=== PATIENT | male | born 1985 | race Hispanic/Latino ===

== ENCOUNTER 2017-03-06 16:10 | Inpatient (IN) | payer MEDICAID, OTHER ==
[2017-03-06 16:21] VITALS: BMI 23.0
[2017-03-06 17:06] LABS: BASO # 0.01 K/mm3 (0.0-2.0); BASO % 0.1 % (0.0-3.0); EOS # 0.1 (0.0-0.7); EOS % 0.8 % (1.5-5.0); GRAN # 7.71 (1.4-6.5); HEMATOCRIT 34.9 % (42.0-52.0); LYMPH # 1.8 (1.2-3.4); LYMPH % 17.3 % (22.0-35.0); MEAN CELL VOLUME 86.8 fl (80.0-105.0); MEAN CORPUSCULAR HEMOGLOBIN 29.6 pg (25.0-35.0); MEAN CORPUSCULAR HGB CONC 34.1 g/dl (31.0-37.0); MEAN PLATELET VOLUME 8.7 fl (7.0-11.0); MONO # 0.7 (0.1-0.6); MONO % 6.8 % (1.0-6.0); RED CELL DISTRIBUTION WIDTH 13.9 % (11.5-14.5); WHITE BLOOD COUNT 10.3 10^3/ul (4.5-11.0)
[2017-03-06 17:24] LABS: ALB/GLOB RATIO 1.3 (1.1-1.8); ALKALINE PHOSPHATASE 77 U/L (38-126); ALT/SGPT 143 U/L (7-56); AST/SGOT 78 U/L (17-59); BILIRUBIN,TOTAL 1.1 mg/dL (0.2-1.3); BLOOD UREA NITROGEN 13 mg/dL (7-21); CALCIUM 9.3 mg/dL (8.4-10.5); CARBON DIOXIDE 26 mmol/L (21-33); CHLORIDE 101 mmol/L (98-107); GFR AFRICAN-AMERICAN > 60; GLUCOSE,RANDOM 112 mg/dL (70-110); SODIUM 135 mmol/L (132-148); TOTAL PROTEIN 7.7 g/dL (5.8-8.3)
--- NOTE | 2017-03-06 18:02 | ED PDOC ---
Arrival/HPI <Yomi Wick - Last Filed: 03/06/17 18:34> <Matheus Israel - Last Filed: 03/06/17 21:30> - General Time Seen by Provider: 03/06/17 16:41 - History of Present Illness Narrative History of Present Illness (Text): 31M c/o hearing voices for the last month telling him to kill himself. he says he attempted to overdose by injecting heroin last night. he c/o pain and swelling in his left forearm where he injected. he says he was dx w anxiety, depression, and bipolar several years ago but he stopped taking medication bc he could not afford it. (Yomi Wick) Past Medical History - Cardiac Hx Cardiac Disorders: No - Pulmonary Hx Respiratory Disorders: No - Neurological Hx Neurological Disorder: No - HEENT Hx HEENT Disorder: No - Renal Hx Renal Disorder: No - Endocrine/Metabolic Hx Endocrine Disorders: No - Hematological/Oncological Hx Blood Disorders: No - Integumentary Hx Dermatological Disorder: No - Musculoskeletal/Rheumatological Hx Musculoskeletal Disorders: No - Gastrointestinal Hx Gastrointestinal Disorders: No - Genitourinary/Gynecological Hx Genitourinary Disorders: No - Psychiatric Hx Anxiety: Yes Hx Bipolar Disorder: Yes Hx Depression: Yes Hx Substance Use: No - Surgical History Hx Appendectomy: Yes - Anesthesia Hx Anesthesia: No Hx Anesthesia Reactions: No Hx Malignant Hyperthermia: No <Yomi Wick - Last Filed: 03/06/17 18:34> Family/Social History Family/Social History: Other (nc) Smoking Status: Light Smoker < 10 Cigarettes Daily Hx Alcohol Use: No Hx Substance Use: No Substance used: heroin <Yomi Wick - Last Filed: 03/06/17 18:34> Allergies/Home Meds <Yomi Wick - Last Filed: 03/06/17 18:34> <Matheus Israel - Last Filed: 03/06/17 21:30> Allergies/Adverse Reactions: Allergies No Known Allergies Allergy (Verified 03/06/17 16:32) Home Medications: Home Meds Medication Instructions Recorded Confirmed No Known Home Med 03/06/17 03/06/17 Review of Systems - Physician Review All systems were reviewed & negative as marked: Yes - Review of Systems Constitutional: absent: Fevers Respiratory: absent: SOB Cardiovascular: absent: Chest Pain Gastrointestinal: absent: Abdominal Pain, Vomiting Neurological: absent: Headache, Dizziness, Focal Weakness Psychiatric: Anxiety, Depression, Suicidal Ideation <Yomi Wick - Last Filed: 03/06/17 18:34> Physical Exam Vital Signs Reviewed: Yes Appearance: Positive for: Well-Appearing, Non-Toxic, Comfortable Pain Distress: None Mental Status: Positive for: Alert and Oriented X 3 - Systems Exam Head: Present: Atraumatic Pupils: Present: PERRL Mouth: Present: Moist Mucous Membranes Nose (Internal): No: Epistaxis Neck: Present: Normal Range of Motion Respiratory/Chest: No: Respiratory Distress, Accessory Muscle Use Cardiovascular: Present: Regular Rate and Rhythm Abdomen: No: Tenderness, Distention Upper Extremity: Present: Other (mild swelling and mild erythema of the distal aspect of the left forearm. track castanon present.) Neurological: Present: GCS=15 Skin: Present: Warm, Dry <Yomi Wick - Last Filed: 03/06/17 18:34> Vital Signs Temp Pulse Resp BP Pulse Ox 03/06/17 18:32 81 17 133/63 98 03/06/17 16:29 99.3 F 95 H 18 138/86 97 Medical Decision Making <Yomi Wick - Last Filed: 03/06/17 18:34> <Matheus Israel - Last Filed: 03/06/17 21:30> ED Course and Treatment: rec continue clindamycin for cellulitis of left forearm. (Yomi Wick) 03/06/17 21:29 Patient endorsed to me by Dr. Wick; he has cellulitis of the left forearm which could be treated with oral antibiotics but was otherwise cleared for psych eval and admission - seen by PES and will be admitted to psychiatry for major depression and substance abuse. (Matheus Israel) - Lab Interpretations Lab Results: 03/06/17 16:54 03/06/17 16:54 Lab Results 03/06/17 18:42: Urine Opiates Screen Positive H, Urine Methadone Screen Negative , Ur Barbiturates Screen Negative, Ur Phencyclidine Scrn Negative, Ur Amphetamines Screen Negative, U Benzodiazepines Scrn Negative, U Oth Cocaine Metabols Positive H, U Cannabinoids Screen Positive H 03/06/17 18:42: Urine Color Yellow, Urine Appearance Clear, Urine pH 6.5, Ur Specific Moss 1.020, Urine Protein Trace H, Urine Glucose (UA) Negative, Urine Ketones 15 H, Urine Blood Negative, Urine Nitrate Negative, Urine Bilirubin Negative, Urine Urobilinogen 1.0 H, Ur Leukocyte Esterase Negative, Urine RBC 1 - 3, Urine WBC 1 - 3, Ur Epithelial Cells 0 - 2 03/06/17 16:54: Alcohol, Quantitative < 10 03/06/17 16:54: Salicylates < 1 L, Acetaminophen < 10.0 L 03/06/17 16:54: Sodium 135, Potassium 4.0, Chloride 101, Carbon Dioxide 26, Anion Gap 12, BUN 13, Creatinine 0.8, Est GFR ( Amer) > 60, Est GFR (Non- Af Amer) > 60, Random Glucose 112 H, Calcium 9.3, Total Bilirubin 1.1, AST 78 H , ALT 143 H, Alkaline Phosphatase 77, Total Protein 7.7, Albumin 4.3, Globulin 3.4, Albumin/Globulin Ratio 1.3 03/06/17 16:54: WBC 10.3, RBC 4.02, Hgb 11.9 L, Hct 34.9 L, MCV 86.8, MCH 29.6, MCHC 34.1, RDW 13.9, Plt Count 372, MPV 8.7, Gran % 75.0 H, Lymph % (Auto) 17.3 L, Runnels % (Auto) 6.8 H, Eos % (Auto) 0.8 L, Baso % (Auto) 0.1, Gran # 7.71 H, Lymph # 1.8, Runnels # 0.7 H, Eos # 0.1, Baso # 0.01 - Medication Orders Current Medication Orders: Discontinued Medications Clindamycin HCl (Cleocin) 300 mg PO STAT STA PRN Reason: Protocol Stop: 03/06/17 18:31 Last Admin: 03/06/17 18:39 Dose: 300 mg Disposition/Present on Arrival - Present on Arrival Any Indicators Present on Arrival: No History of DVT/PE: No History of Uncontrolled Diabetes: No Urinary Catheter: No History of Decub. Ulcer: No History Surgical Site Infection Following: None <Yomi Wick - Last Filed: 03/06/17 18:34> - Disposition Have Diagnosis and Disposition been Completed?: Yes Disposition Time: 21:15 Patient Plan: Admission <Matheus Israel - Last Filed: 03/06/17 21:30> - Disposition Diagnosis: Suicidal ideation, Cellulitis Disposition: HOSPITALIZED Patient Problems: Current Active Problems Problem Status Onset Cellulitis Acute Suicidal ideation Acute Condition: STABLE
[2017-03-06 18:53] LABS: PH,URINE 6.5 (4.7-8.0); URINE BILIRUBIN NEGATIVE (NEGATIVE); URINE BLOOD NEGATIVE (NEGATIVE); URINE GLUCOSE (UA) NEGATIVE (NEGATIVE); URINE KETONE 15 mg/dL (NEGATIVE); URINE LEUKOCYTE ESTERASE NEGATIVE Leu/uL (NEGATIVE); URINE PROTEIN TRACE mg/dL (<30 mg/dL)
[2017-03-06 19:43] LABS: URINE APPEARANCE CLEAR (CLEAR); URINE COLOR YELLOW (YELLOW)
[2017-03-06 20:07] LABS: URINE EPITHELIAL CELLS 0 - 2 /hpf (0-5)
[2017-03-06] MEDS ORDERED: Magnesium Hydroxide Susp 30 ml UD PO PRN (23:03)
[2017-03-06] MEDS ORDERED: Alum-Mag Hydrox-Simethicone Susp (30 mL) PO PRN (23:03)
--- NOTE | 2017-03-07 01:27 | PCM.BM ---
<Ashutosh Owusu - Last Filed: 03/07/17 01:24> Treatment Plan Problems - Problems identified on initial assessmt depression Date Initiated: 03/06/17 Time Initiated: 22:15 Assessment reference: NA Status: Active suicidal ideation Date Initiated: 03/06/17 Time Initiated: 22:15 Assessment reference: NA Status: Active Treatment assets and liabiliti Patient Assests: cooperative, ADL independent Patient Liabilities: live alone, financial problems, poor support system, relationship conflicts, substance abuse - Milieu Protocol Maintain good personal hygiene: daily Encourage regular showers, daily Remind patient to perform daily oral care, daily Assist patient to perform ADL's Conduct patient checks and document Observation sheet: Q15 minutes, 1:1 Maintain personal safety: every shift Educate patient to report safety concerns to staff, every shift Monitor environment for contraband/sharps Medication safety: Monitor for expected outcome, potential side effects: every shift, Assess barriers to learning: every shift, Assess readiness for medication education: every shift Discharge/Continuing Care - Education Needs Education Needs: Patient Medication, Patient Diagnosis/Disease Process, Patient Coping Skills, Patient Community resources, Patient Health Practices/Safety - Discharge Discharge Criteria: Tolerates medication w/o severe side effects, Free of Suicidal thoughts, Normal sleep pattern <Avani Napoles - Last Filed: 03/07/17 16:37> Family Contact Family involvement: Famliy/SO not involved Family contact: Patient declines to allow family contact at present - Goals for Treatment Patient goals for treatment: "To get on Disability so that I can help my family. " <Uyen Chow - Last Filed: 03/07/17 16:51>
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
[2017-03-07 07:58] LABS: CHOLESTEROL 141 mg/dL (130-200)
--- NOTE | 2017-03-07 08:49 | RAD ---
HISTORY: psych COMPARISON: None available. TECHNIQUE: Chest, one view. FINDINGS: LUNGS: No focal consolidation. Please note that chest x-ray has limited sensitivity for the detection of pulmonary masses. PLEURA: No significant pleural effusion identified. No definite pneumothorax . CARDIOVASCULAR: The cardiomediastinal silhouette appears within normal limits of size. OSSEOUS STRUCTURES: No acute osseous abnormality identified. VISUALIZED UPPER ABDOMEN: Unremarkable. OTHER FINDINGS: None. IMPRESSION: No focal consolidation, significant pleural effusion, or definite pneumothorax identified.
--- NOTE | 2017-03-07 09:08 | CARD ---
APPROVED REPORT EKG Measurement Heart [id number] <Conclusion> Normal sinus rhythm Voltage criteria for left ventricular hypertrophy Abnormal ECG
[2017-03-08 06:48] VITALS: O2SAT 99
[2017-03-08 08:56] LABS: FREE T4 0.98 ng/dL (0.78-2.19)
[2017-03-08 09:10] LABS: THYROID STIMULATING HORMONE 0.24 mIU/mL (0.46-4.68)
[2017-03-08] MEDS: Tmp-Smz 800 mg-160 mg DS Tab PO SCH (15:19)
--- NOTE | 2017-03-08 16:22 | PCM.PYCHPN ---
Psychiatric Progress Note - Psychiatric Progress Note Patient seen today, length of contact: 25 min Patient Chief Complaint: feeling a lot better and hopeful. Problems Identified/Issues Discussed: I recent notes and met with patient at bedside. Patient is oriented and cooperative. Reports that he is feeling a lot better and hopeful.Affect is constricted and depressed. Thought process is scattered. Patient denies having any hallucinations and he does not appear to be responding to internal stimuli. Patient denies having any new pain, side affectsor discomfort. Reports sleep was restless last night. Staff notes indicate he hasn't been attending groups and has minimal interaction with peers. Has been labile.There were no behavioral issues overnight Diagnostic Results: Schizoaffective Disorder Opiate Use Disorder, Severe r/o SIMD r/o SIPD Medication Change: Yes (Sonata started) Medical Record Reviewed: Yes Mental Status Examination - Cognitive Function Orientation: Person, Place Attention: WNL - Mood Mood: Depressed (feeling a lot better and hopeful.) - Affect Affect: Constricted - Speech Speech: Appropriate - Formal Thought Process Formal Thought Process: Loosening of associations - Suicidal Ideation Suicidal Ideation: No - Homicidal Ideation Homicidal Ideation: No Goal/Treatment Plan - Goal/Treatment Plan Progress Toward Problem(s) and Goals/Treatment Plan: * c/w current tx and plan * Sonata 5 mg HS prn:insomnia * c/w methadone taper for opiate withdrawal, patient scheduled to get 5 mg x1 today * Vitals reviewed and noted below: Selected Entries 03/06/17 03/06/17 21:40 22:13 Temperature 99 F Pulse Rate 86 78 Respiratory 19 Rate Blood Pressure 139/64 120/77 * Weekend labs noted below: 03/08/17 03/08/17 06:50 06:50 Free T4 0.98 TSH 3rd Generation 0.24 L HIV-1 Ab Rapid Screen Non reactive
[2017-03-09] MEDS: Tmp-Smz 800 mg-160 mg DS Tab PO SCH ×2 (08:24→17:35)
--- NOTE | 2017-03-09 09:28 | PCM.PYCHPN ---
Psychiatric Progress Note - Psychiatric Progress Note Patient seen today, length of contact: 25 min Patient Chief Complaint: feeling a lot better and hopeful. Problems Identified/Issues Discussed: I reviewed recent notes and met with patient in the hallway. Appears younger than his age, grooming is a little unkempt. Patient remains oriented and cooperative. Reports that he is feeling a lot better and hopeful. Affect is more reactive and related. Thought process is more focused and organized today. Patient denies having any hallucinations and he does not appear to be responding to internal stimuli. Patient denies having any new pain, side affects or discomfort. Reports that he slept better last night. Staff notes indicate that patient has been labile and irritable with low frustration tolerance. Angry about nursing taking away his pants because it has drawstrings. Patient hasn't been attending groups and has minimal interaction with peers. There were no major behavioral issues overnight Diagnostic Results: Schizoaffective Disorder Opiate Use Disorder, Severe r/o SIMD r/o SIPD Medication Change: Yes (Sonata started) Medical Record Reviewed: Yes Mental Status Examination - Cognitive Function Orientation: Person, Place Attention: WNL - Mood Mood: Depressed (feeling a lot better and hopeful.) - Affect Affect: Constricted (more reactive and related) - Speech Speech: Appropriate - Formal Thought Process Formal Thought Process: Loosening of associations - Suicidal Ideation Suicidal Ideation: No - Homicidal Ideation Homicidal Ideation: No Goal/Treatment Plan - Goal/Treatment Plan Progress Toward Problem(s) and Goals/Treatment Plan: * c/w current tx and plan * Sonata 5 mg HS prn:insomnia started 03/07/17 * c/w methadone taper for opiate withdrawal, patient scheduled to get 2.5 mg x1 today * Vitals reviewed and noted below: Selected Entries 03/08/17 03/08/17 06:47 16:00 Temperature 98.2 F Pulse Rate 64 64 Respiratory 17 Rate Blood Pressure 124/89 118/78 O2 Sat by Pulse 99 Oximetry * Weekend labs noted below: 03/08/17 03/08/17 06:50 06:50 Free T4 0.98 TSH 3rd Generation 0.24 L HIV-1 Ab Rapid Screen Non reactive
[2017-03-10 06:39] VITALS: PULSE 62; RESP 20
[2017-03-10 06:42] VITALS: BP 109/64; TEMP 98.1
[2017-03-10] MEDS: Tmp-Smz 800 mg-160 mg DS Tab PO SCH (08:49)
== END 2017-03-10 17:07 | disposition home or self-care (01) | DRG 430 ==
LOC: ED 16:10 → ERH 21:11 → PSYC 21:44
PROVIDERS: ADMIT Psychiatry & Neurology Psychiatry; ATTEND Psychiatry & Neurology Addiction Medicine
DX: F25.9 Schizoaffective disorder, unspecified (principal); F11.23 Opioid dependence with withdrawal; L03.114 Cellulitis of left upper limb; R45.851 Suicidal ideations

== ENCOUNTER 2017-05-05 21:24 | Emergency (ER) | payer MEDICAID, OTHER ==
[2017-05-05 21:24] VITALS: BMI 23.0
== END 2017-05-05 22:22 | disposition left against medical advice (07) ==
LOC: ED 21:24
DX: Z02.89 Encounter for other administrative examinations (principal); Z00.8 Encounter for other general examination

== ENCOUNTER 2017-05-10 20:44 | Inpatient (IN) | payer MEDICAID, OTHER ==
[2017-05-10 20:44] VITALS: BMI 23.0
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
[2017-05-10 23:10] LABS: HEMOGLOBIN 12.8 g/dL (14.0-18.0); MEAN CELL VOLUME 87.8 fl (80.0-105.0); MEAN CORPUSCULAR HEMOGLOBIN 29.4 pg (25.0-35.0); MEAN CORPUSCULAR HGB CONC 33.5 g/dl (31.0-37.0); MEAN PLATELET VOLUME 8.8 fl (7.0-11.0); RBC 4.35 10^6/uL (3.5-6.1); WHITE BLOOD COUNT 8.5 10^3/ul (4.5-11.0)
[2017-05-10 23:15] LABS: ALB/GLOB RATIO 1.3 (1.1-1.8); ALBUMIN 4.4 g/dL (3.0-4.8); ALT/SGPT 260 U/L (7-56); AST/SGOT 96 U/L (17-59); BLOOD UREA NITROGEN 12 mg/dL (7-21); CALCIUM 9.4 mg/dL (8.4-10.5); GFR AFRICAN-AMERICAN > 60; GFR NON-AFRICAN AMERICAN > 60
[2017-05-11 02:42] LABS: BARBITURATES, UR NEGATIVE (NEGATIVE); BENZODIAZEPINES, UR NEGATIVE (NEGATIVE)
[2017-05-11 02:43] LABS: OPIATES, UR POSITIVE (NEGATIVE)
[2017-05-11 02:44] LABS: PHENCYCLIDINE, UR NEGATIVE (NEGATIVE)
--- NOTE | 2017-05-11 07:13 | ED PDOC ---
Physical Exam Vital Signs Temp Pulse Resp BP Pulse Ox 05/11/17 06:00 56 L 16 102/62 100 05/11/17 04:00 88 18 112/70 100 05/11/17 02:00 80 16 114/69 100 05/11/17 00:05 72 16 120/71 98 05/10/17 20:53 97.6 F 90 18 132/79 100 Medical Decision Making ED Course and Treatment: 05/11/17 07:00 Case signed out to me by Dr. Thompson. Patient is a 31 year old male, who presents to the Emergency department complaining of depression and admits to feeling increasingly depressed over the past few weeks after he began using heroin again. Patient also notes having auditory hallucinations. Currently pending psych evaluation and Chest X-ray. 05/11/17 08:[address] Salas who will admit patient under his care. - Lab Interpretations Lab Results: 05/10/17 22:49 05/10/17 22:49 Lab Results 05/11/17 02:00: Urine Opiates Screen Positive H, Urine Methadone Screen Negative , Ur Barbiturates Screen Negative, Ur Phencyclidine Scrn Negative, Ur Amphetamines Screen Negative, U Benzodiazepines Scrn Negative, U Oth Cocaine Metabols Positive H, U Cannabinoids Screen Positive H 05/10/17 22:49: WBC 8.5, RBC 4.35, Hgb 12.8 L, Hct 38.2 L, MCV 87.8, MCH 29.4, MCHC 33.5, RDW 14.0, Plt Count 347, MPV 8.8 05/10/17 22:49: Alcohol, Quantitative < 10 05/10/17 22:49: Sodium 140, Potassium 3.8, Chloride 104, Carbon Dioxide 29, Anion Gap 11, BUN 12, Creatinine 0.8, Est GFR ( Amer) > 60, Est GFR (Non- Af Amer) > 60, Random Glucose 94, Calcium 9.4, Total Bilirubin 0.6, AST 96 H D, ALT 260 H, Alkaline Phosphatase 79, Total Protein 7.7, Albumin 4.4, Globulin 3.4 , Albumin/Globulin Ratio 1.3 - RAD Interpretation Radiology Orders: 05/10/17 21:04 CHEST PORTABLE [RAD] Stat - Scribe Statement The provider has reviewed the documentation as recorded by the Scribe Hazel Dona Provider Malikae Attestation: All medical record entries made by the Sujatha were at my direction and personally dictated by me. I have reviewed the chart and agree that the record accurately reflects my personal performance of the history, physical exam, medical decision making, and the department course for this patient. I have also personally directed, reviewed, and agree with the discharge instructions and disposition. Disposition/Present on Arrival - Present on Arrival Any Indicators Present on Arrival: No History of DVT/PE: No History of Uncontrolled Diabetes: No Urinary Catheter: No History of Decub. Ulcer: No History Surgical Site Infection Following: None - Disposition Have Diagnosis and Disposition been Completed?: Yes Diagnosis: Suicidal ideation Disposition: HOSPITALIZED Disposition Time: 10:00 Patient Problems: Current Active Problems Problem Status Onset Suicidal ideation Acute Condition: STABLE
--- NOTE | 2017-05-11 08:41 | RAD ---
HISTORY: medical clearance COMPARISON: 03/06/2017 FINDINGS: LUNGS: No active pulmonary disease. PLEURA: No significant pleural effusion identified, no pneumothorax apparent. CARDIOVASCULAR: Normal. OSSEOUS STRUCTURES: No significant abnormalities. VISUALIZED UPPER ABDOMEN: Normal. OTHER FINDINGS: None. IMPRESSION: No active disease.
[2017-05-11 09:18] VITALS: O2SAT 98
[2017-05-11] MEDS ORDERED: Alum-Mag Hydrox-Simethicone Susp (30 mL) PO PRN (11:51)
[2017-05-11] MEDS ORDERED: Magnesium Hydroxide Susp 30 ml UD PO PRN (11:51)
--- NOTE | 2017-05-11 11:54 | CP.PCM.CON ---
<JavierDomenico smith - Last Filed: 05/11/17 13:10> History of Present Illness - History of Present Illness History of Present Illness: HPI: Patient is a 31yo male with past medical history of depression, anxiety, polysubstance abuse (marijuana/cocaine/heroine) and hepatitis C that presented to [facility] for worsening depression and substance abuse. He reports that he has been unable to hold down a job and quit his drug use which have resulted in feelings of worthlessness. He also reported that he was diagnosed with hepatitis C approximately 1 year prior and was instructed to follow up with a clinic for treatment however never followed through due to transportation issues. He denied chest pain, palpitations, SOB, abdominal pain, nausea, vomiting, fever, chills, cough. 12point ROS as per HPI above otherwise negative PMH: as stated above PSH: appendectomy Allergies: NKDA Medications: Reports previously taking seroquel, ativan and klonipin however has not taken any medications as of late Family Hx: Father: DM; Mother: history of depression/substance abuse on maternal side Social Hx: Admits to tobacco use, heroine use (last used yesterday, 2-3 bags); however was staying with a friend in [place] Past Patient History - Infectious Disease Hx of Infectious Diseases: None - Past Social History Smoking Status: Light Smoker < 10 Cigarettes Daily - CARDIAC Hx Cardiac Disorders: No Hx Angina: No Hx Atrial Fibrillation: No Hx Cardia Arrhythmia: No Hx Circulatory Problems: No Hx Congestive Heart Failure: No Hx Heart Attack: No Hx Heart Murmur: No Hx Heart Transplant: No Hx Hypercholesterolemia: No Hx Hypertension: No Hx Hypotension: No Hx Internal Defibrillator: No Hx Mitral Valve Prolapse: No Hx Pacemaker: No Hx Peripheral Edema: No Hx Peripheral Vascular Disease: No - PULMONARY Hx Respiratory Disorders: No Hx Asthma: No Hx Bronchitis: No Hx Chronic Obstructive Pulmonary Disease (COPD): No Hx Emphysema: No Hx Lung Cancer: No Hx Pneumonia: No Hx Pulmonary Edema: No Hx Pulmonary Embolism: No Hx Respiratory Aspiration: No Hx Respiratory Tract Infection: No Hx Sleep Apnea: No Hx Tuberculosis: No - NEUROLOGICAL Hx Neurological Disorder: No - HEENT Hx HEENT Problems: No Hx Cataracts: No Hx Deafness: No Hx Difficulty Chewing: No Hx Epistaxis: No Hx Glaucoma: No Hx Macular Degeneration: No Hx Sinusitis: No - RENAL Hx Chronic Kidney Disease: No Hx Dialysis: No - ENDOCRINE/METABOLIC Hx Endocrine Disorders: No Hx Adrenal Cancer: No Hx Diabetes Insipidus: No Hx Diabetes Mellitus Type 1: No Hx Diabetes Mellitus Type 2: No Hx Hyperthyroidism: No Hx Hypothyroidism: No Hx Systemic Lupus Erythematosus: No - HEMATOLOGICAL/ONCOLOGICAL Hx Blood Disorders: Yes Hx AIDS: No Hx Hepatitis C: Yes - INTEGUMENTARY Hx Dermatological Problems: No - MUSCULOSKELETAL/RHEUMATOLOGICAL Hx Musculoskeletal Disorders: No Hx Arthritis: No Hx Back Pain: No Hx Degenerative Joint Disease: No Hx Falls: No Hx Fractures: No Hx Gout: No Hx Herniated Disk: No Hx Myasthenia Gravis: No Hx Osteoarthritis: No Hx Osteomyelitis: No Hx Osteoporosis: No Hx Rhabdomyolysis: No Hx Rheumatoid Arthritis: No Hx Spinal Stenosis: No Hx Unsteady Gait: No - GASTROINTESTINAL Hx Gastrointestinal Disorders: No Hx Bowel Surgery: No Hx Clostridium Difficile: No Hx Colitis: No Hx Colostomy: No Hx Constipation: No Hx Crohn's Disease: No Hx Diarrhea: No Hx Diverticulitis: No Hx Esophageal Varices: No Hx Fatty Liver Disease: No Hx Gall Bladder Disease: No Hx Gastritis: No Hx Gastroesophageal Reflux: No Hx Hemorrhoids: No Hx Ileostomy: No Hx Irritable Bowel: No Hx Liver Failure: No Hx Nausea: No Hx Pancreatitis: No HX Swallowing Problems: No Hx Ulcer: No Hx Vomiting: No - GENITOURINARY/GYNECOLOGICAL Hx Genitourinary Disorders: No Hx Bladder Cancer: No Hx Bladder Stone: No Hx Hematuria: No Hx Incontinence: No Hx Prostate Cancer: No Hx Prostate Problems: No Hx Reproductive Disorders: No Hx Sexually Transmitted Disorders: No Hx Urinary Tract Infection: No - PSYCHIATRIC Hx Psychophysiologic Disorder: No Hx Anxiety: Yes Hx Bipolar Disorder: No Hx Depression: Yes Hx Emotional Abuse: No Hx Physical Abuse: No Hx Schizophrenia: No Hx Sexual Abuse: No Hx Substance Use: Yes (heroin) - SURGICAL HISTORY Hx Surgeries: Yes Hx Abdominal Aortic Aneurysm Repair: No Hx Amputation: No Hx Angiogram: No Hx Angioplasty: No Hx Appendectomy: Yes Hx Arteriovenous Shunt: No Hx Arthroscopy: No Hx Bile Duct Stent: No Hx Breast Biopsy: No Hx Cataract Extraction: No Hx Cardiac Catheterization: No Hx Carotid Endarterectomy: No Hx Section: No Hx Cholecystectomy: No Hx Coronary Artery Bypass Graft: No Hx Coronary Stent: No Hx Dilation and Curettage: No Hx Eye Surgery: No Hx Femoral-Popliteal Bypass Graft: No Hx Gastric Bypass Surgery: No Hx Herniorrhaphy: No Hx Hysterectomy: No Hx Joint Replacement: No Hx Kidney Transplant: No Hx Liver Transplant: No Hx Mastectomy: No Hx Musculoskeletal Surgery: No Hx Open Heart Surgery: No Hx Open Reduction Internal Fixation: No Hx Orthopedic Surgery: No Hx Parathyroidectomy: No Hx Penile Implant: No Hx Pulmonary Surgery: No Hx Splenectomy: No Hx Thyroidectomy: No Hx Tonsillectomy: No Hx Valve Replacement: No Hx Vascular Surgery: No Hx Vascular Access Device: No - ANESTHESIA Hx Anesthesia: Yes Hx Anesthesia Reactions: No Hx Malignant Hyperthermia: No Meds Allergies/Adverse Reactions: Allergies Allergy/AdvReac Type Severity Reaction Status Date / Time No Known Allergies Allergy Verified 05/10/17 20:50 - Medications Medications: Current Medications Acetaminophen (Tylenol 325mg Tab) 650 mg PO Q4 PRN PRN Reason: Pain, Mild (1-3) Al Hydrox/Mg Hydrox/Simethicone (Maalox Plus 30 Ml) 30 ml PO DAILY PRN PRN Reason: Upset Stomach Clonidine HCl (Catapres) 0.1 mg PO Q12H PRN PRN Reason: opiate withdrawal Lorazepam (Ativan) 0.5 mg PO AMHS BERNDA PRN Reason: Protocol Magnesium Hydroxide (Milk Of Magnesia) 30 ml PO DAILY PRN PRN Reason: Constipation Ondansetron HCl (Zofran Odt) 4 mg PO Q8H PRN PRN Reason: Nausea/Vomiting Quetiapine Fumarate (Seroquel) 50 mg PO HS BRENDA PRN Reason: Protocol Physical Exam - Constitutional Appears: No Acute Distress - Head Exam Head Exam: ATRAUMATIC, NORMAL INSPECTION, NORMOCEPHALIC - Eye Exam Eye Exam: EOMI, PERRL - ENT Exam ENT Exam: Mucous Membranes Moist - Neck Exam Neck exam: Positive for: Normal Inspection - Respiratory Exam Respiratory Exam: Clear to Auscultation Bilateral. absent: Rales, Rhonchi, Wheezes - Cardiovascular Exam Cardiovascular Exam: RRR, +S1, +S2. absent: Tachycardia, Gallop, Rubs, Systolic Murmur - GI/Abdominal Exam GI & Abdominal Exam: Soft. absent: Distended, Firm, Guarding, Rebound, Tenderness - Extremities Exam Extremities exam: Negative for: pedal edema Additional comments: track castanon on bilateral upper extremities near wrists right wrist track lary with non-erythematous raised area ~2cm in diameter - Neurological Exam Neurological exam: Alert, CN II-XII Intact, Normal Gait, Oriented x3 - Psychiatric Exam Psychiatric exam: Anxious, Depressed - Skin Skin Exam: Dry, Intact, Normal Color, Warm Results - Vital Signs Recent Vital Signs: Last Vital Signs Temp 98 F 05/11/17 09:00 Pulse 62 05/11/17 09:00 Resp 16 05/11/17 10:26 BP 132/78 05/11/17 09:00 Pulse Ox 98 05/11/17 09:00 - Labs Result Diagrams: 05/10/17 22:49 05/10/17 22:49 Assessment & Plan - Assessment and Plan (Free Text) Plan: 31yo male with history of depression, anxiety, polysubstance abuse and reported history of hepatitic C presents for treatment of depression/substance abuse 1. Depression 2. Anxiety 3. Polysubstance abuse 4. Hepatitis C 5. Tobacco use -Discontinued tylenol due to transaminitis; continue ibuprofen as needed for pain -Nicotine patch offered however patient refused stating it is not necessary -Counseled on polysubstance/tobacco cessation as well as importance of obtaining a primary doctor and following up regarding treatment for his hepatitis C -Patient counseled on outpatient follow up and treatment for hepatitis C -Keflex 500mg q6h for 5 days for soft tissue swelling near sites of drug use -Recommend monitoring for signs/symptoms of opiate withdrawal -Continue current psychiatric management as per psychiatry team Patient seen and case discussed/reviewed with attending, Dr. Bravo <Grey Bravo - Last Filed: 05/11/17 14:33> Meds - Medications Medications: Current Medications Al Hydrox/Mg Hydrox/Simethicone (Maalox Plus 30 Ml) 30 ml PO DAILY PRN PRN Reason: Upset Stomach Cephalexin Monohydrate (Keflex) 500 mg PO Q6 BRENDA PRN Reason: Protocol Stop: 05/16/17 18:01 Clonidine HCl (Catapres) 0.1 mg PO Q12H PRN PRN Reason: opiate withdrawal Ibuprofen (Motrin Tab) 400 mg PO Q6H PRN PRN Reason: Pain, Mild (1-3) Lorazepam (Ativan) 0.5 mg PO AMHS BRENDA PRN Reason: Protocol Magnesium Hydroxide (Milk Of Magnesia) 30 ml PO DAILY PRN PRN Reason: Constipation Ondansetron HCl (Zofran Odt) 4 mg PO Q8H PRN PRN Reason: Nausea/Vomiting Quetiapine Fumarate (Seroquel) 50 mg PO HS BRENDA PRN Reason: Protocol Results - Vital Signs Recent Vital Signs: Last Vital Signs Temp 98 F 05/11/17 09:00 Pulse 62 05/11/17 09:00 Resp 16 05/11/17 10:26 BP 132/78 05/11/17 09:00 Pulse Ox 98 05/11/17 09:00 - Labs Result Diagrams: 05/10/17 22:49 05/10/17 22:49 Attending/Attestation - Attestation I have personally seen and examined this patient.: Yes I have fully participated in the care of the patient.: Yes I have reviewed all pertinent clinical information: Yes Notes (Text): 05/11/17 14:26 Attending note ; Patient seen and examined with resident in psychiatric floor . Patient is a 31 year old male with past medical history of depression, anxiety, polysubstance abuse (marijuana/cocaine/heroine) and hepatitis C that presented to [facility] for worsening depression. Anxiety; continue treatment per psychiatry. Active smoking; smoking cessation is strongly advised. Patient refused NicoDerm patch. Elevated LFT; secondary to chronic hepatitis C. Patient is strongly advised to follow-up with GI as outpatient for further treatment. Advised to stop Tylenol, alcohol abuse. Polysubstance abuse; currently on IV Ativan. Treatment per psychiatrist. Monitor for withdrawal symptoms. Currently on Ativan and clonidine. IV drug abuse; no significant abscess. Mild swelling noted. Started on Keflex. Monitor closely. Please consult surgery for incision and drainage if the swelling increases/ abscess develops. Side effects of IVDA including sepsis, bacteremia, endocarditis and explained in detail. Patient is strongly advised to stop IV drug abuse. Patient is advised to follow-up with PMD of choice upon discharge. Patient is clinically stable for now.. Please reconsult as needed.
--- NOTE | 2017-05-11 14:43 | PCM.BM ---
<Tyler Henry - Last Filed: 05/12/17 10:03> Treatment Plan Problems - Problems identified on initial assessmt Hopelessness Date Initiated: 05/11/17 Time Initiated: 14:42 Assessment reference: NA Status: Active Priority: 1 Ineffective Coping Date Initiated: 05/11/17 Time Initiated: 14:42 Assessment reference: NA Status: Active Priority: 2 Anxiety Related to Substance Abuse Date Initiated: 05/11/17 Time Initiated: 14:43 Assessment reference: NA Status: Active Priority: 3 Treatment assets and liabiliti Patient Assests: cooperative, ADL independent, physically healthy, negotiates basic needs, cognitively intact, good interpersonal skills Patient Liabilities: financial problems, substance abuse - Milieu Protocol Maintain good personal hygiene: daily Encourage regular showers, daily Remind patient to perform daily oral care Conduct patient checks and document Observation sheet: Q15 minutes Maintain personal safety: every shift Educate patient to report safety concerns to staff, every shift Monitor environment for contraband/sharps Medication safety: Monitor for expected outcome, potential side effects: every shift, Assess barriers to learning: every shift, Assess readiness for medication education: every shift Discharge/Continuing Care - Education Needs Education Needs: Patient Medication, Patient Diagnosis/Disease Process, Patient Coping Skills, Patient Aftercare Safety Plan - Discharge Discharge Criteria: Tolerates medication w/o severe side effects, Normal sleep pattern, No longer exhibiting s/s of withdrawal <Sarah Vega - Last Filed: 05/12/17 14:16> - Diagnosis (1) Opioid use disorder, severe, dependence Status: Acute Interventions: 05/12/17 14:16 Monitoring withdrawal symptoms Medical detoxification Pharmacotherapy for alcohol/benzos/opioid dependence Maintaining sobriety Relapse prevention Possible rehabilitation Motivational interviewing 12-step programs: AA meetings (2) Substance induced mood disorder Status: Acute Interventions: 05/12/17 14:17 Psychoeducation Psychopharmacology/adjustment of medications as needed/ monitoring possible side effects Evaluate pt on daily basis Compliance with medications and follow up appointments Suicide and homicide risk assessment and prevention Relapse prevention Reduction of symptoms Improve functional status Family involvement As outpatient: cognitive behavioral therapy (3) Substance-induced psychotic disorder Status: Acute Interventions: 05/12/17 14:18 Psychoeducation/psychotherapy Psychopharmacology/adjustment of medications as needed/ monitoring possible side effects Evaluate pt on daily basis Compliance with medications and follow up appointments Suicide and homicide risk assessment and prevention, coping strategies, safety plan Relapse prevention Reduction of symptoms Improve functional status Possible assertive community treatment Cognitive behavioral therapy Family involvement Possible social skill training as outpatient <Avani Napoles - Last Filed: 05/12/17 16:33> Family Contact Family involvement: Famliy/SO not involved
[2017-05-12 07:04] VITALS: RESP 20
[2017-05-12] MEDS: Pantoprazole 40 mg EC Tab PO SCH (07:04)
[2017-05-12 08:23] LABS: GLUCOSE,FASTING 108 mg/dL (65-110); HDL CHOLESTEROL 58 mg/dL (29-60)
[2017-05-12 08:32] LABS: LDL CHOLESTEROL 59 mg/dL (0-129)
[2017-05-12 08:37] LABS: FREE T4 0.94 ng/dL (0.78-2.19)
--- NOTE | 2017-05-12 10:11 | CARD ---
APPROVED REPORT EKG Measurement Heart [id number] <Conclusion> Normal sinus rhythm with sinus arrhythmia Voltage criteria for left ventricular hypertrophy Abnormal ECG
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
[2017-05-13] MEDS: Pantoprazole 40 mg EC Tab PO SCH (06:13)
[2017-05-13 07:07] VITALS: BP 122/75; PULSE 54; TEMP 98.6
[2017-05-13] MEDS ORDERED: Multivitamin With Minerals Tab PO SCH (08:00)
--- NOTE | 2017-05-13 14:02 | PCM.PYCHDC ---
Mental Status Examination - Mental Status Examination Orientation: Person, Place, Situation, Time Memory: Intact Mood: Neutral Affect: Broad Speech: Appropriate Attention: WNL Concentration: WNL Association: WNL Fund of Knowledge: WNL Description of patient's judgement and insight: Patient denies being suicidal or homicidal, appears in no imminent danger of hurting himself or others. Psychotic Thoughts and Behaviors: Patient denies being suicidal or homicidal, denies the presence of hallucinations, delusions, or paranoia. Suicidal Ideation: No Current Homicidal Ideation?: No Discharge Summary - Discharge Note Reason for Hospitalization: Per Dr Mcclain's admission note: Shortly pt is 31 yo male, long h/o opioid addiction, h/o detoxes but not rehabs , self reported h/o anxiety and depression, self reported h/o suicidal attempts , one psychiatric admission to this unit in February 2017 under 's service, pt was admitted to the psych unit for evaluation and stabilization of possible depression, possible suicidal ideation, pt said he overdoses on heroin three days ago, pt was not compliant with medications and follow up appts, pt needs further evaluation and stabilization, meds adjustment. due to pt's symptoms and providing symptoms pt needed to be admitted for further evaluation. Psychiatric History (includes Medical, Family, Personal Hx): see HPI Laboratory Data: Abnormal Lab Results 05/12/17 07:45 RPR Nonreactive Laboratory Tests 05/10/17 05/10/17 05/10/17 22:49 22:49 22:49 WBC 8.5 RBC 4.35 Hgb 12.8 L Hct 38.2 L MCV 87.8 MCH 29.4 MCHC 33.5 RDW 14.0 Plt Count 347 MPV 8.8 Sodium 140 Potassium 3.8 Chloride 104 Carbon Dioxide 29 Anion Gap 11 BUN 12 Creatinine 0.8 Est GFR ( Amer) > 60 Est GFR (Non-Af Amer) > 60 Random Glucose 94 Fasting Glucose Calcium 9.4 Total Bilirubin 0.6 AST 96 H D ALT 260 H Alkaline Phosphatase 79 Total Protein 7.7 Albumin 4.4 Globulin 3.4 Albumin/Globulin Ratio 1.3 Triglycerides Cholesterol LDL Cholesterol Direct HDL Cholesterol Free T4 TSH 3rd Generation Urine Opiates Screen Urine Methadone Screen Ur Barbiturates Screen Ur Phencyclidine Scrn Ur Amphetamines Screen U Benzodiazepines Scrn U Oth Cocaine Metabols U Cannabinoids Screen Alcohol, Quantitative < 10 RPR 05/11/17 05/12/17 05/12/17 02:00 07:45 07:45 WBC RBC Hgb Hct MCV MCH MCHC RDW Plt Count MPV Sodium Potassium Chloride Carbon Dioxide Anion Gap BUN Creatinine Est GFR ( Amer) Est GFR (Non-Af Amer) Random Glucose Fasting Glucose 108 Calcium Total Bilirubin AST ALT Alkaline Phosphatase Total Protein Albumin Globulin Albumin/Globulin Ratio Triglycerides 64 Cholesterol 139 LDL Cholesterol Direct 59 HDL Cholesterol 58 Free T4 0.94 TSH 3rd Generation 0.08 L Urine Opiates Screen Positive H Urine Methadone Screen Negative Ur Barbiturates Screen Negative Ur Phencyclidine Scrn Negative Ur Amphetamines Screen Negative U Benzodiazepines Scrn Negative U Oth Cocaine Metabols Positive H U Cannabinoids Screen Positive H Alcohol, Quantitative RPR 05/12/17 07:45 WBC RBC Hgb Hct MCV MCH MCHC RDW Plt Count MPV Sodium Potassium Chloride Carbon Dioxide Anion Gap BUN Creatinine Est GFR ( Amer) Est GFR (Non-Af Amer) Random Glucose Fasting Glucose Calcium Total Bilirubin AST ALT Alkaline Phosphatase Total Protein Albumin Globulin Albumin/Globulin Ratio Triglycerides Cholesterol LDL Cholesterol Direct HDL Cholesterol Free T4 TSH 3rd Generation Urine Opiates Screen Urine Methadone Screen Ur Barbiturates Screen Ur Phencyclidine Scrn Ur Amphetamines Screen U Benzodiazepines Scrn U Oth Cocaine Metabols U Cannabinoids Screen Alcohol, Quantitative RPR Nonreactive Temp Pulse Resp BP Pulse Ox 98.6 F 54 L 20 122/75 98 05/13/17 07:06 05/13/17 07:06 05/13/17 07:06 05/13/17 07:06 05/11/17 09:00 Consultations:: List each consultation separately and include: 1. Reason for request. 2. Findings. 3. Follow-up Consultations: Per Dr Bravo Consult 05/11/2017, thank you Summary of Hospital Course include:: 1. Description of specific treatment plan utilized for patients during their course of treatmen. 2. Summarize the time- course for resolution of acute symptoms and/or regressed behaviors. 3. Describe issues identified and worked on during hospitalization. 4. Describe medication utilized. 5. Describe medical problems identified and treated. 6. Reassessment of suicide risk Summary of Hospital Course: Patient admitted 05/11/2017, from Dr Mcclain's initial note:Shortly pt is 31 yo male, long h/o opioid addiction, h/o detoxes but not rehabs, self reported h/ o anxiety and depression, self reported h/o suicidal attempts, one psychiatric admission to this unit in February 2017 under 's service, pt was admitted to the psych unit for evaluation and stabilization of possible depression, possible suicidal ideation, pt said he overdoses on heroin three days ago, pt was not compliant with medications and follow up appts, pt needs further evaluation and stabilization, meds adjustment. due to pt's symptoms and providing symptoms pt needed to be admitted for further evaluation. Patient was focused on suboxone or methadone as well as disability as goals for treatment, these options are not available here. Patient signed 48 hour notice. Denies suicidal or homicidal ideation, and appears in no imminent danger of hurting himself or others. Denies the presence of hallucinations, delusions or paranoia, was given a referral to [facility] and discharged AMA. - Final Diagnosis (DSM 5) Condition upon Discharge: STABLE Disposition: AGAINST MEDICAL ADVICE Follow-up Treatment Plan: [facility] Prescriptions/Medication Reconciliation: Cephalexin [Keflex] 500 mg PO Q6 #16 cap - Smoking Cessation Smoking Cessation Medication prescribed: No Reason for not providing: Patient not a smoker - Antipsychotic Medications Pt discharged on 2 or more routine antipsychotic medications: No
== END 2017-05-13 13:46 | disposition left against medical advice (07) | DRG 430 ==
LOC: ED 20:44 → ERH 05-11 08:30 → PSYC 05-11 09:43
PROVIDERS: ADMIT Psychiatry & Neurology Psychiatry; ATTEND Psychiatry & Neurology Psychiatry
DX: F39 Unspecified mood [affective] disorder (principal); F11.20 Opioid dependence, uncomplicated; F12.90 Cannabis use, unspecified, uncomplicated; F17.200 Nicotine dependence, unspecified, uncomplicated; Z91.19 Patient's noncompliance with other medical treatment and regimen; Z91.14 Patient's other noncompliance with medication regimen